=== PATIENT | female | born 1960 | race Two or more races ===

== ENCOUNTER → 2017-12-11 | Day surgery (SDC) | payer OTHER ==
[~2017-12-11] MED LIST: LIDOCAINE 1% PF 2 ML VIAL. ID; LIDOCAINE 2% PF Vial for OR 5 ML VIAL.; MIDAZOLAM HCL/PF 2 MG/2 ML VIAL. IV; PROPOFOL 20 ML IV; fentaNYL PF VIAL 100 MCG/2 ML VIAL IV
[2017-12-11] MEDS: IV RINGERS,LACTATED 1000ML 1,000 ML IV (10:13)
[2017-12-11 10:14] LABS: POC GLUCOSE 116 mg/dL (70-99)
== END | disposition home or self-care (01) ==
LOC: SURG 09:22
DX: Z09 Encounter for follow-up examination after completed treatment for conditions other than malignant neoplasm (principal); K57.30 Diverticulosis of large intestine without perforation or abscess without bleeding; Z86.010 Personal history of colon polyps; K64.0 First degree hemorrhoids; D12.3 Benign neoplasm of transverse colon; D12.0 Benign neoplasm of cecum; I10 Essential (primary) hypertension; E11.9 Type 2 diabetes mellitus without complications; Z98.890 Other specified postprocedural states; Z88.8 Allergy status to other drugs, medicaments and biological substances; Z91.048 Other nonmedicinal substance allergy status; M19.90 Unspecified osteoarthritis, unspecified site; Z83.3 Family history of diabetes mellitus; Z82.49 Family history of ischemic heart disease and other diseases of the circulatory system; Z79.82 Long term (current) use of aspirin; Z79.84 Long term (current) use of oral hypoglycemic drugs; Z79.899 Other long term (current) drug therapy; Z90.49 Acquired absence of other specified parts of digestive tract; Z98.51 Tubal ligation status
CPT/HCPCS: 45380; 45385; 82962; 88305; J2001; J2704

== ENCOUNTER → 2019-08-19 | Day surgery (SDC) | payer OTHER ==
[~2019-08-19] MED LIST changes: +ASPI-630 PO; +ATOR20TA58 PO; +CHOL500016 PO; +IV RINGERS,LACTATED 1000ML 1,000 ML IV ONE; -LIDOCAINE 1% PF 2 ML VIAL. ID; -LIDOCAINE 2% PF Vial for OR 5 ML VIAL.; +LISI10TA2 PO; +LORA10CA PO; +METF10007 PO; -MIDAZOLAM HCL/PF 2 MG/2 ML VIAL. IV; -PROPOFOL 20 ML IV; +PROPOFOL 20 ML IV ONE; +TIOT18CA IH; -fentaNYL PF VIAL 100 MCG/2 ML VIAL IV
--- NOTE | 2019-08-19 11:08 | PREOP HP ---
DATE OF SERVICE: 08/19/2019 REQUESTING PHYSICIAN: Vanda Becerra MD REASON FOR PROCEDURE: History of colon polyps. HISTORY OF PRESENT ILLNESS: This is a 59-year-old female who presents today for followup colonoscopy. She has a history of a 5 mm cecal adenoma on colonoscopy 06/2009. ALLERGIES: 1. MOLD SPORES. 2. ANIMAL DANDER. 3. MITES. 4. TREES. MEDICAL HISTORY: 1. Colon polyps. 2. Osteoarthritis. FAMILY MEDICAL HISTORY: 1. Diabetes. 2. CO. MEDICATIONS: MAR reviewed. REVIEW OF SYSTEMS: A 13-point review of systems was done. It is positive as per HPI and otherwise negative. PHYSICAL EXAMINATION: VITAL SIGNS: She is afebrile. Vital signs are stable. GENERAL: She is a well-developed, well-nourished female, in no apparent distress. HEENT: Oropharynx is clear. CARDIOVASCULAR: S1, S2. LUNGS: Clear. ABDOMEN: Normoactive bowel sounds, soft, nontender, nondistended. EXTREMITIES: No edema. NEUROLOGIC: Awake, alert and oriented x 3. ASSESSMENT AND PLAN: History of colon polyps. Proceed with colonoscopy. The risks and benefits including bleeding, perforation, non-diagnosis and sedation were explained and she has agreed to proceed. JOEY EMANUEL MD DR: VIOLET/melanie JOB#: [id number] / [id number]
[2019-08-19 11:09] VITALS: BP 111/64
--- NOTE | 2019-08-20 11:07 | PATHOLOGY ---
[facility] Accession Number: [id number] . 01 Material submitted: . cecum - APPENDICEAL ORIFICE POLYP . 01 Clinical history: . History of polyps; polyps . 02 Diagnosis: Colon biopsies, appendiceal orifice polyp: - Tubular adenoma (1). - Multiple segments of colonic mucosa showing focal edema and slight acute and chronic inflammation. (JPM:[facility] 08/20/2019) [facility] 08/20/2019 1016 Local . 02 Comment: There is no high-grade dysplasia or evidence of malignancy. (JP:[facility] 08/20/2019) . 02 Electronically signed: . Casey Walker MD, Pathologist NPI- [id number] . 01 Gross description: . The specimen is received in formalin, labeled "Ashley Bryant, appendiceal orifice polyp". Received are five segments of pale carroll soft tissue ranging in size from 0.1 to 0.7 cm in maximum dimensions. The specimen is submitted entirely in cassette A1. ([facility]; 08/19/2019) QA/QA 08/19/2019 1844 Local . 02 Pathologist provided ICD-10: D12.1 . 02 CPT . 608493 Specimen Comment: A courtesy copy of this report has been sent to [phone] Specimen Comment: Report sent to Performed at: 01 [facility] [address], [place] [id number] MD Mau Rodas MD Phone: [phone] Performed at: 02 [facility] [address], [place] [id number] MD Casey Walker MD Phone: [phone]
== END ==
LOC: ENDOS 09:41
PROVIDERS: ATTEND Internal Medicine Gastroenterology
DX: Z12.11 Encounter for screening for malignant neoplasm of colon (principal); D12.1 Benign neoplasm of appendix; K57.30 Diverticulosis of large intestine without perforation or abscess without bleeding; K64.0 First degree hemorrhoids; I10 Essential (primary) hypertension; E11.9 Type 2 diabetes mellitus without complications; F15.90 Other stimulant use, unspecified, uncomplicated; Z98.890 Other specified postprocedural states; Z91.09 Other allergy status, other than to drugs and biological substances; Z87.39 Personal history of other diseases of the musculoskeletal system and connective tissue; Z79.82 Long term (current) use of aspirin; Z86.010 Personal history of colon polyps; Z79.84 Long term (current) use of oral hypoglycemic drugs; Z98.51 Tubal ligation status; Z90.49 Acquired absence of other specified parts of digestive tract
CPT/HCPCS: 45385; 88305; J2704; 45380